=== PATIENT | female | born 1975 | race Caucasian/White ===

== ENCOUNTER 2016-07-06 20:49 | Emergency (ER) | payer OTHER ==
[2016-07-06 21:45] LABS: BASOPHILS 0.5 % (0.0-2.0); EOSINOPHILS 4.2 % (0-7); HEMOGLOBIN 15.1 g/dL (12-16); IMMATURE GRANULOCYTES 0.4 % (0-5); LYMPHOCYTES 31.2 % (15-50); MCHC 34.3 g/dL (31.0-37.0); MCV 93.2 fL (80.0-100.0); MEAN PLATELET VOLUME 9.8 fL (7.4-10.4); MONOCYTES 7.7 % (2-11); RBC 4.72 10x6/uL (4.00-5.40); RDW 12.4 % (11.5-14.5)
[2016-07-06 22:04] LABS: PLATELET COUNT 304 10x3/uL (130-400)
[2016-07-06 22:09] LABS: APPEARANCE CLEAR (CLEAR); BILIRUBIN NEGATIVE (NEGATIVE); COLOR YELLOW (YELLOW); GLUCOSE NEGATIVE (NEGATIVE); KETONE NEGATIVE (NEGATIVE); LEUKOCYTE ESTERASE NEGATIVE (NEGATIVE); NITRITE NEGATIVE (NEGATIVE); PROTEIN NEGATIVE (NEGATIVE); UROBILINOGEN NORMAL (NORMAL)
[2016-07-06 22:11] LABS: RED CELLS - URINE OCC /hpf (0-5); WHITE CELLS - URINE OCC /hpf (0-5)
[2016-07-06 22:12] LABS: BACTERIA FEW /hpf (NONE SEEN)
[2016-07-06 22:15] LABS: ALBUMIN 3.5 g/dL (3.4-5.0); ALKALINE PHOSPHATASE 63 U/L (46-116); ALT (SGPT) 21 U/L (10-68); BILIRUBIN - TOTAL 0.16 mg/dL (0.2-1.3); CALC OSMOLALITY 279 mosm/kg (275-300); CALCIUM 9.3 mg/dL (8.5-10.1); CARBON DIOXIDE 29.5 mmol/L (21.0-32.0); CHLORIDE - SERUM 103 mmol/L (98-107); CREATININE - SERUM 1.1 mg/dL (0.6-1.3); GLUCOSE 99 mg/dL (74-106); POTASSIUM - SERUM 3.9 mmol/L (3.5-5.1); PROTEIN - SERUM 7.2 g/dL (6.4-8.2); SODIUM 140 mmol/L (136-145); UREA NITROGEN 15 mg/dL (7-18); eGFR NON AFRICAN AMERICAN 58 mL/min (90-120)
[2016-07-06 22:17] LABS: CREATINE KINASE 77 UL (21-215); TROPONIN-I < 0.017 ng/mL (0.000-0.060)
== END 2016-07-06 22:36 | disposition home or self-care (01) ==
LOC: D.ER 20:49
PROVIDERS: Emergency Medicine
DX: R07.89 Other chest pain (principal); I95.1 Orthostatic hypotension; I49.3 Ventricular premature depolarization; F17.200 Nicotine dependence, unspecified, uncomplicated

== ENCOUNTER → 2017-03-10 16:41 | Outpatient (CLI) | payer OTHER | END | disposition home or self-care (01) | LOC: D.MAMMO 02-21 14:15 | DX: Z12.31 Encounter for screening mammogram for malignant neoplasm of breast (principal) ==

== ENCOUNTER → 2017-06-13 09:58 | Outpatient (CLI) | payer OTHER | END | disposition home or self-care (01) | LOC: D.US 09:58 | DX: R31.21 Asymptomatic microscopic hematuria (principal) ==